=== PATIENT | male | born 1945 | race Caucasian/White ===

== ENCOUNTER → 2018-09-08 | Day surgery (SDC) | payer MEDICARE ==
[2018-09-04 10:11] LABS: BASOPHILS # (AUTO) 0.1 (0.0-0.1); BASOPHILS % 0.7 % (0.0-1.0); EOSINOPHILS # (AUTO) 0.2 (0.0-0.4); EOSINOPHILS % 2.3 % (0.0-6.0); HEMATOCRIT 41.5 % (38.2-49.6); HEMOGLOBIN 13.1 g/dL (14.0-18.0); LYMPHOCYTES # (AUTO) 2.3 (1.0-3.2); LYMPHOCYTES % 28.2 % (18.0-39.1); MEAN CORPUSCULAR HEMOGLOBIN 28.8 pg (28-32); MEAN CORPUSCULAR HGB CONC 31.6 g/dL (31-35); MEAN CORPUSCULAR VOLUME 91.2 fL (81-99); MONOCYTES # (AUTO) 0.8 (0.2-0.8); MONOCYTES % 9.8 % (4.4-11.3); NEUTROPHILS # (AUTO) 4.8 (2.1-6.9); NEUTROPHILS % 58.6 % (38.7-80.0); PLATELET COUNT 278 x10e3/uL (140-360); RED BLOOD COUNT 4.55 x10e6/uL (4.3-5.7); RED CELL DISTRIBUTION WIDTH 13.5 % (11.7-14.4)
[~2018-09-08] MED LIST: ASPIR 8181 MG PO; BAYER BACK & B1 EACH PO; GLIPIZIDE5 MG PO; LIDOCAINE HCL 2% LOCAL INJ 5 ML SDV VIAL INJ ONE; LISINOPRIL10 MG PO; METFORMIN HCL500 MG PO; MULTIVITAMINS1 EAC7 PO; PROPOFOL IV EMULSION 10 MG/ML 20 ML VIAL ONE; SIMVASTATIN20 MG PO
[2018-09-08 11:00] VITALS: BP 125/87
--- OUTSIDE RECORDS SUMMARY | 2018-09-09 11:07 | XMS REPORT | Clinical Summary ---
Author Author [facility] Address Unknown Phone Unavailable Care Team Providers Care Preparation Plant Supervisor Name Role Phone Kulwinder Ro MD PCP Allergies Comments Active Allergy Reactions Severity Noted Date Penicillin G Anaphylaxis High 12/19/2016 Medications No known medications Active Problems Not on file Social History Date Tobacco Use Types Packs/Day Years Used Former Smoker Alcohol Use Drinks/Week oz/Week Comments No Sex Assigned at Date Recorded Not on file Industry Job Start Date Occupation Not on file Not on file Not on file Travel End Travel History Travel Start No recent travel history available. Last Filed Vital Signs Not on file Plan of Treatment Not on file Results Not on fileafter 09/08/2017 Insurance Type Payer Benefit Subscriber ID Effective Phone Address Plan / Dates Group HMO [employer] TEXAN[employer]US xxxxxxxxx 2016- [facility] Present Advance Directives Patient has advance care planning documents on file. For more information, maria a fuentes contact: Alexis Del Toro [address] [place] [address]
== END | disposition home or self-care (01) ==
LOC: OR 11:04
PROVIDERS: ATTEND Internal Medicine Gastroenterology
DX: R19.5 Other fecal abnormalities (principal); K29.60 Other gastritis without bleeding; K29.80 Duodenitis without bleeding; K44.9 Diaphragmatic hernia without obstruction or gangrene; E11.9 Type 2 diabetes mellitus without complications; I10 Essential (primary) hypertension; E78.5 Hyperlipidemia, unspecified; R01.1 Cardiac murmur, unspecified; Z88.0 Allergy status to penicillin; Z01.810 Encounter for preprocedural cardiovascular examination; Z01.812 Encounter for preprocedural laboratory examination; Z79.84 Long term (current) use of oral hypoglycemic drugs; Z79.82 Long term (current) use of aspirin
CPT/HCPCS: 36415; 43239; 85025; 93005; J2001; J2704

== ENCOUNTER → 2018-10-20 | Day surgery (SDC) | payer MEDICARE ==
[~2018-10-20] MED LIST changes: +FENTANYL CITRATE/PF 100MCG/2 ML INJ ONE; -LIDOCAINE HCL 2% LOCAL INJ 5 ML SDV VIAL INJ ONE; +MIDAZOLAM HCL 2 MG/2 ML VIAL ONE; -PROPOFOL IV EMULSION 10 MG/ML 20 ML VIAL ONE; +PROPOFOL IV EMULSION 10 MG/ML 50 ML VIAL ONE
--- OUTSIDE RECORDS SUMMARY | 2018-10-20 09:34 | XMS REPORT | Clinical Summary ---
Author Author [facility] Address Unknown Phone Unavailable Care Team Providers Care Soil Tester Name Role Phone Kulwinder Ro MD PCP Allergies Comments Active Allergy Reactions Severity Noted Date Penicillin G Anaphylaxis High 12/19/2016 Medications No known medications Active Problems Not on file Encounters Care Team Description Date Type Specialty Gage Sierra MD Abnormal feces (Primary Dx) 10/06/2018 Transcribe Access Orders after 10/19/2017 Social History Date Tobacco Use Types Packs/Day Years Used Former Smoker Alcohol Use Drinks/Week oz/Week Comments No Sex Assigned at Date Recorded Not on file Industry Job Start Date Occupation Not on file Not on file Not on file Travel End Travel History Travel Start No recent travel history available. Last Filed Vital Signs Not on file Plan of Treatment Health Maintenance Due Date Last Done Comments COLONOSCOPY SCREENING 11/29/1995 SHINGLES VACCINES (#1) 11/29/1995 65+ PNEUMOCOCCAL VACCINE 2010 (1 of 2 - PCV13) INFLUENZA VACCINE 11/05/2018 Procedures Comments Procedure Name Priority Date/Time Associated Diagnosis CT ENTEROGRAPHY Routine 10/14/2018 Abnormal feces 9:43 AM CDT ESTIMATED GFR Routine 10/14/2018 9:33 AM CDT POC CREATININE Routine 10/14/2018 9:33 AM CDT after 10/19/2017 Results * CT Enterography (10/14/2018 9:43 AM CDT) Specimen Narrative Performed At EXAMINATION:CT ENTEROGRAPHY [facility] CLINICAL HISTORY:R19.5 Other fecal abnormalities, ABNORMAL FECES TECHNIQUE: Multiple axial images of the abdomen and pelvis were obtained during intravenous administration of iodinated contrast. Low density oral contrast was administered (CT enterography protocol). Sagittal and coronal computerized reformatted images were also obtained. CT imaging was performed with iterative reconstruction techniques and/or automated exposure control to reduce radiation dose. COMPARISON:CT abdomen and pelvis 05/22/2006 IMPRESSION: 1.Small bowel: There is no evidence of enteritis, small bowel obstruction, or small bowel mass. 2.Large bowel: In the cecum, there is localized mucosal thickening, which could simply be mucosal redundancy accentuated by underdistention but is potentially a polyp measuring approximately 2 cm (coronal image 28, sagittal image 18, axial image 187). Recommend correlation with colonoscopy.There is sigmoid diverticulosis. The appendix is normal. 3.Stomach and duodenum:Unremarkable. 4.There are benign bilateral renal cysts measuring up to 3.3 cm in the right lower renal pole and 3.5 cm in the left mid kidney. There is no hydronephrosis. The urinary bladder is normal. 5.The liver, gallbladder, spleen, pancreas, and adrenals are unremarkable. 6.There is no lymphadenopathy or ascites. 7.There is no significant skeletal abnormality. [id number] Procedure Note Hm Interface, Radiology Results Incoming - 10/14/2018 10:15 AM CDT EXAMINATION: CT ENTEROGRAPHY CLINICAL HISTORY: R19.5 Other fecal abnormalities, ABNORMAL FECES TECHNIQUE: Multiple axial images of the abdomen and pelvis were obtained during intravenous administration of iodinated contrast. Low density oral contrast was administered (CT enterography protocol). Sagittal and coronal computerized reformatted images were also obtained. CT imaging was performed with iterative reconstruction techniques and/or automated exposure control to reduce radiation dose. COMPARISON: CT abdomen and pelvis 05/22/2006 IMPRESSION: 1. Small bowel: There is no evidence of enteritis, small bowel obstruction, or small bowel mass. 2. Large bowel: In the cecum, there is localized mucosal thickening, which could simply be mucosal redundancy accentuated by underdistention but is potentially a polyp measuring approximately 2 cm (coronal image 28, sagittal image 18, axial image 187). Recommend correlation with colonoscopy. There is sigmoid diverticulosis. The appendix is normal. 3. Stomach and duodenum: Unremarkable. 4. There are benign bilateral renal cysts measuring up to 3.3 cm in the right lower renal pole and 3.5 cm in the left mid kidney. There is no hydronephrosis. The urinary bladder is normal. 5. The liver, gallbladder, spleen, pancreas, and adrenals are unremarkable. 6. There is no lymphadenopathy or ascites. 7. There is no significant skeletal abnormality. [id number] Performing Organization Address City/State/Zipcode Phone Number [facility] [address] [place] [address] * Estimated GFR (10/14/2018 9:33 AM CDT) Pathologist [facility] Estimated GFR 60 mL/min/1.73 m2 TROY Comment: SCIENTOLOGY [facility] G1 >=90 Normal or high G2 60-89Mildly decreased [id number] Mildly to moderately decreased [id number] Moderately to severely decreased G4 15-29Severely decreased G5 <15Kidney failure The eGFR was calculated using the Chronic Kidney Disease Epidemiology Collaboration (CKD-EPI) equation. Interpretation is based on recommendations of the National Kidney Foundation-Kidney Disease Outcomes Quality Initiative (NKF-KDOQI) published in 2014. Specimen Blood Performing Organization Address City/[facility]/Zipcode Phone Number [facility] DEPART[facility] [place] [address] PATHOLOGY AND GENOMIC MEDICINE [address] [place] [address] HOSPITAL * POC creatinine (10/14/2018 9:33 AM CDT) Pathologist [facility] POC creatinine 1.2 0.7 - 1.2 mg/dl TROY Comment: SCIENTOLOGY Meter ID: [id number] [place] [employer] Scientist: [facility] Specimen Blood Performing Organization Address City/[facility]/Zipcode Phone Number [place] [phone] [place] [address] PATHOLOGY AND GENOMIC MEDICINE [address] [place] [address] HOSPITAL after 10/19/2017 Insurance Type Payer Benefit Subscriber ID Effective Phone Address Plan / Dates Group HMO TEXANPLUS TEXANPLUS xxxxxxxxx 2016- [facility] Present Advance Directives Patient has advance care planning documents on file. For more information, pleas e contact: Alexis Del Toro [address] [place] [address]
[2018-10-20 13:11] VITALS: BP 131/86
== END | disposition home or self-care (01) ==
LOC: OR 09:26
PROVIDERS: ATTEND Internal Medicine Gastroenterology
DX: Z12.11 Encounter for screening for malignant neoplasm of colon (principal); D12.0 Benign neoplasm of cecum; K57.30 Diverticulosis of large intestine without perforation or abscess without bleeding; K64.8 Other hemorrhoids; N40.0 Benign prostatic hyperplasia without lower urinary tract symptoms; R19.5 Other fecal abnormalities; K29.60 Other gastritis without bleeding; K21.9 Gastro-esophageal reflux disease without esophagitis; D64.9 Anemia, unspecified; I10 Essential (primary) hypertension; R01.1 Cardiac murmur, unspecified; E11.9 Type 2 diabetes mellitus without complications; E66.9 Obesity, unspecified; Z88.0 Allergy status to penicillin; Z88.8 Allergy status to other drugs, medicaments and biological substances; Z79.82 Long term (current) use of aspirin; Z79.84 Long term (current) use of oral hypoglycemic drugs
CPT/HCPCS: 36415; 45385; 82948; J2250; J2704; J3010; 45378